=== PATIENT | female | born 1965 | race Caucasian/White ===

== ENCOUNTER 2016-06-29 15:13 | Outpatient (CLI) | payer MEDICARE ==
[2016-06-29 15:29] LABS: EOSINOPHILS % 0.4 % (0.0-6.8); LYMPHOCYTES # 1.6 # k/uL (0.6-4.0); MEAN CORPUSCULAR HEMOGLOBIN 33.2 pg (28.0-34.0); MONOCYTES # 0.4 # k/uL (0.0-0.9); MONOCYTES % 7.7 % (0.0-11.0); NEUTROPHILS # 3.3 # k/uL (1.4-7.7)
== END 2016-06-29 15:14 ==
LOC: LAB 15:13
PROVIDERS: ATTEND Psychiatry & Neurology Psychiatry
DX: Z79.899 Other long term (current) drug therapy (principal)
CPT/HCPCS: 36415; 85025

== ENCOUNTER 2016-07-13 12:50 | Outpatient (CLI) | payer MEDICARE ==
[2016-07-13 13:11] LABS: BASOPHILS % 0.7 (0.0-1.5); LYMPHOCYTES # 1.5 # k/uL (0.6-4.0); MEAN CORPUSCULAR HEMOGLOBIN 31.9 pg (28.0-34.0); MONOCYTES # 0.3 # k/uL (0.0-0.9); MONOCYTES % 5.3 % (0.0-11.0); NEUTROPHILS # 3.8 # k/uL (1.4-7.7)
== END 2016-07-13 12:52 ==
LOC: LAB 12:50
PROVIDERS: ATTEND Psychiatry & Neurology Psychiatry
DX: Z79.899 Other long term (current) drug therapy (principal)
CPT/HCPCS: 36415; 85025

== ENCOUNTER 2016-07-20 14:51 | Outpatient (CLI) | payer MEDICARE ==
[2016-07-20 15:05] LABS: BASOPHILS % 0.7 (0.0-1.5); EOSINOPHILS % 1.3 % (0.0-6.8); LYMPHOCYTES # 1.5 # k/uL (0.6-4.0); MEAN CORPUSCULAR HEMOGLOBIN 32.5 pg (28.0-34.0); MONOCYTES # 0.2 # k/uL (0.0-0.9); MONOCYTES % 3.9 % (0.0-11.0)
== END 2016-07-20 14:52 ==
LOC: LAB 14:51
PROVIDERS: ATTEND Psychiatry & Neurology Psychiatry
DX: Z79.899 Other long term (current) drug therapy (principal)
CPT/HCPCS: 36415; 85025

== ENCOUNTER 2016-07-31 15:05 | Outpatient (CLI) | payer MEDICARE, OTHER ==
[2016-07-31 15:24] LABS: BASOPHILS % 0.7 (0.0-1.5); EOSINOPHILS % 0.9 % (0.0-6.8); LYMPHOCYTES # 1.9 # k/uL (0.6-4.0); MONOCYTES # 0.3 # k/uL (0.0-0.9); MONOCYTES % 4.6 % (0.0-11.0)
== END 2016-07-31 15:06 ==
LOC: LAB 15:05
PROVIDERS: ATTEND Psychiatry & Neurology Psychiatry
DX: Z51.81 Encounter for therapeutic drug level monitoring (principal); Z79.899 Other long term (current) drug therapy
CPT/HCPCS: 36415; 85025

== ENCOUNTER 2016-08-07 15:16 | Outpatient (CLI) | payer MEDICARE, OTHER ==
[2016-08-07 15:39] LABS: BASOPHILS % 0.9 (0.0-1.5); EOSINOPHILS % 2.2 % (0.0-6.8); LYMPHOCYTES # 1.4 # k/uL (0.6-4.0); MEAN CORPUSCULAR HEMOGLOBIN 32.5 pg (28.0-34.0); MONOCYTES # 0.3 # k/uL (0.0-0.9); MONOCYTES % 4.6 % (0.0-11.0); NEUTROPHILS # 4.4 # k/uL (1.4-7.7)
== END 2016-08-07 15:17 ==
LOC: LAB 15:16
PROVIDERS: ATTEND Psychiatry & Neurology Psychiatry
DX: Z51.81 Encounter for therapeutic drug level monitoring (principal); Z79.899 Other long term (current) drug therapy
CPT/HCPCS: 36415; 85025

== ENCOUNTER 2016-08-14 14:16 | Outpatient (CLI) | payer MEDICARE, OTHER ==
[2016-08-14 14:58] LABS: BASOPHILS % 0.7 (0.0-1.5); EOSINOPHILS % 1.2 % (0.0-6.8); LYMPHOCYTES # 1.4 # k/uL (0.6-4.0); MEAN CORPUSCULAR HEMOGLOBIN 32.9 pg (28.0-34.0); MONOCYTES # 0.3 # k/uL (0.0-0.9); MONOCYTES % 4.2 % (0.0-11.0); NEUTROPHILS # 6.1 # k/uL (1.4-7.7)
== END 2016-08-14 14:17 ==
LOC: LAB 14:16
PROVIDERS: ATTEND Psychiatry & Neurology Psychiatry
DX: Z51.81 Encounter for therapeutic drug level monitoring (principal); Z79.899 Other long term (current) drug therapy
CPT/HCPCS: 36415; 85025

== ENCOUNTER 2016-08-21 12:47 | Outpatient (CLI) | payer MEDICARE, OTHER ==
[2016-08-21 13:01] LABS: BASOPHILS % 0.6 (0.0-1.5); EOSINOPHILS % 0.7 % (0.0-6.8); MEAN CORPUSCULAR HEMOGLOBIN 32.3 pg (28.0-34.0); MONOCYTES % 3.7 % (0.0-11.0); NEUTROPHILS # 6.8 # k/uL (1.4-7.7)
== END 2016-08-21 12:50 ==
LOC: LAB 12:47
PROVIDERS: ATTEND Psychiatry & Neurology Psychiatry
DX: Z51.81 Encounter for therapeutic drug level monitoring (principal); Z79.899 Other long term (current) drug therapy
CPT/HCPCS: 36415; 85025

== ENCOUNTER 2016-08-28 15:35 | Outpatient (CLI) | payer MEDICARE, OTHER ==
[2016-08-28 15:58] LABS: BASOPHILS % 0.7 (0.0-1.5); EOSINOPHILS % 2.1 % (0.0-6.8); MEAN CORPUSCULAR VOLUME 94.6 fl (80.0-100.0); MONOCYTES % 4.3 % (0.0-11.0); NEUTROPHILS # 4.8 # k/uL (1.4-7.7)
== END 2016-08-28 15:36 ==
LOC: LAB 15:35
PROVIDERS: ATTEND Psychiatry & Neurology Psychiatry
DX: Z51.81 Encounter for therapeutic drug level monitoring (principal); Z79.899 Other long term (current) drug therapy
CPT/HCPCS: 36415; 85025

== ENCOUNTER 2016-09-04 15:48 | Outpatient (CLI) | payer MEDICARE, OTHER ==
[2016-09-04 16:01] LABS: BASOPHILS % 0.8 (0.0-1.5); EOSINOPHILS % 2.3 % (0.0-6.8); MEAN CORPUSCULAR HEMOGLOBIN 32.8 pg (28.0-34.0); MEAN CORPUSCULAR VOLUME 94.9 fl (80.0-100.0); MONOCYTES % 4.7 % (0.0-11.0)
== END 2016-09-04 15:50 ==
LOC: LAB 15:48
PROVIDERS: ATTEND Psychiatry & Neurology Psychiatry
DX: Z51.81 Encounter for therapeutic drug level monitoring (principal); Z79.899 Other long term (current) drug therapy
CPT/HCPCS: 36415; 85025

== ENCOUNTER 2016-09-11 14:52 | Outpatient (CLI) | payer MEDICARE, OTHER ==
[2016-09-11 15:11] LABS: BASOPHILS % 0.9 (0.0-1.5); EOSINOPHILS % 1.6 % (0.0-6.8); MEAN CORPUSCULAR HEMOGLOBIN 32.2 pg (28.0-34.0); MEAN CORPUSCULAR VOLUME 94.3 fl (80.0-100.0); MONOCYTES % 4.1 % (0.0-11.0); NEUTROPHILS # 8.7 # k/uL (1.4-7.7)
== END 2016-09-11 14:53 ==
LOC: LAB 14:52
PROVIDERS: ATTEND Psychiatry & Neurology Psychiatry
DX: Z51.81 Encounter for therapeutic drug level monitoring (principal); Z79.899 Other long term (current) drug therapy
CPT/HCPCS: 36415; 85025

== ENCOUNTER 2016-09-18 15:12 | Outpatient (CLI) | payer MEDICARE, OTHER ==
[2016-09-18 15:32] LABS: BASOPHILS % 0.8 (0.0-1.5); EOSINOPHILS % 1.2 % (0.0-6.8); MEAN CORPUSCULAR HEMOGLOBIN 32.9 pg (28.0-34.0); MEAN CORPUSCULAR VOLUME 96.2 fl (80.0-100.0); MONOCYTES % 3.2 % (0.0-11.0); NEUTROPHILS # 10.5 # k/uL (1.4-7.7)
== END 2016-09-18 15:13 ==
LOC: LAB 15:12
PROVIDERS: ATTEND Psychiatry & Neurology Psychiatry
DX: Z51.81 Encounter for therapeutic drug level monitoring (principal); Z79.899 Other long term (current) drug therapy
CPT/HCPCS: 36415; 85025

== ENCOUNTER 2016-09-25 15:10 | Outpatient (CLI) | payer MEDICARE, OTHER ==
[2016-09-25 15:22] LABS: BASOPHILS % 0.9 (0.0-1.5); EOSINOPHILS % 1.4 % (0.0-6.8); MEAN CORPUSCULAR HEMOGLOBIN 31.9 pg (28.0-34.0); MEAN CORPUSCULAR VOLUME 95.9 fl (80.0-100.0); MONOCYTES % 3.8 % (0.0-11.0); NEUTROPHILS # 6.2 # k/uL (1.4-7.7)
== END 2016-09-25 15:11 ==
LOC: LAB 15:10
PROVIDERS: ATTEND Psychiatry & Neurology Psychiatry
DX: Z51.81 Encounter for therapeutic drug level monitoring (principal); Z79.899 Other long term (current) drug therapy
CPT/HCPCS: 36415; 85025

== ENCOUNTER 2016-09-27 16:38 | Outpatient (CLI) | payer MEDICARE, OTHER | END 2016-09-27 16:40 | LOC: LAB 16:38 | PROVIDERS: ATTEND Physician Assistant | DX: R30.0 Dysuria (principal) | CPT/HCPCS: 87086 ==

== ENCOUNTER 2016-10-03 12:51 | Outpatient (CLI) | payer MEDICARE, OTHER ==
[2016-10-03 13:09] LABS: BASOPHILS % 0.6 (0.0-1.5); EOSINOPHILS % 1.2 % (0.0-6.8); MEAN CORPUSCULAR HEMOGLOBIN 32.5 pg (28.0-34.0); MEAN CORPUSCULAR VOLUME 95.8 fl (80.0-100.0); MONOCYTES % 2.7 % (0.0-11.0); NEUTROPHILS # 8.5 # k/uL (1.4-7.7)
== END 2016-10-03 12:52 ==
LOC: LAB 12:51
PROVIDERS: ATTEND Psychiatry & Neurology Psychiatry
DX: Z79.899 Other long term (current) drug therapy (principal)
CPT/HCPCS: 36415; 85025

== ENCOUNTER 2016-10-09 12:01 | Outpatient (CLI) | payer MEDICARE, OTHER ==
[2016-10-09 12:18] LABS: BASOPHILS % 0.8 (0.0-1.5); MEAN CORPUSCULAR HEMOGLOBIN 32.1 pg (28.0-34.0); MEAN CORPUSCULAR VOLUME 96.6 fl (80.0-100.0); MONOCYTES % 4.1 % (0.0-11.0)
== END 2016-10-09 12:02 ==
LOC: LAB 12:01
PROVIDERS: ATTEND Psychiatry & Neurology Psychiatry
DX: Z79.899 Other long term (current) drug therapy (principal)
CPT/HCPCS: 36415; 85025

== ENCOUNTER 2016-10-16 14:29 | Outpatient (CLI) | payer MEDICARE, OTHER ==
[2016-10-16 14:45] LABS: BASOPHILS % 0.6 (0.0-1.5); EOSINOPHILS % 0.8 % (0.0-6.8); MEAN CORPUSCULAR HEMOGLOBIN 32.8 pg (28.0-34.0); MONOCYTES % 3.2 % (0.0-11.0); NEUTROPHILS # 10.4 # k/uL (1.4-7.7)
== END 2016-10-16 14:30 ==
LOC: LAB 14:29
PROVIDERS: ATTEND Psychiatry & Neurology Psychiatry
DX: Z79.899 Other long term (current) drug therapy (principal)
CPT/HCPCS: 36415; 85025

== ENCOUNTER 2016-10-23 15:20 | Outpatient (CLI) | payer MEDICARE, OTHER ==
[2016-10-23 15:35] LABS: BASOPHILS % 1.2 (0.0-1.5); MEAN CORPUSCULAR HEMOGLOBIN 32.1 pg (28.0-34.0); MEAN CORPUSCULAR VOLUME 95.8 fl (80.0-100.0); MONOCYTES % 5.2 % (0.0-11.0); NEUTROPHILS # 5.6 # k/uL (1.4-7.7)
== END 2016-10-23 15:21 ==
LOC: LAB 15:20
PROVIDERS: ATTEND Psychiatry & Neurology Psychiatry
DX: Z79.899 Other long term (current) drug therapy (principal)
CPT/HCPCS: 36415; 85025

== ENCOUNTER 2016-10-30 14:04 | Outpatient (CLI) | payer MEDICARE, OTHER ==
[2016-10-30 14:21] LABS: BASOPHILS % 0.9 (0.0-1.5); EOSINOPHILS % 2.2 % (0.0-6.8); MEAN CORPUSCULAR VOLUME 95.4 fl (80.0-100.0); MONOCYTES % 4.1 % (0.0-11.0); NEUTROPHILS # 6.1 # k/uL (1.4-7.7)
== END 2016-10-30 14:05 ==
LOC: LAB 14:04
PROVIDERS: ATTEND Psychiatry & Neurology Psychiatry
DX: Z79.899 Other long term (current) drug therapy (principal)
CPT/HCPCS: 36415; 85025

== ENCOUNTER 2016-11-06 13:31 | Outpatient (CLI) | payer MEDICARE, OTHER ==
[2016-11-06 13:58] LABS: BASOPHILS % 0.8 (0.0-1.5); EOSINOPHILS % 0.6 % (0.0-6.8); MEAN CORPUSCULAR HEMOGLOBIN 32.2 pg (28.0-34.0); MEAN CORPUSCULAR VOLUME 93.3 fl (80.0-100.0); MONOCYTES % 4.4 % (0.0-11.0); NEUTROPHILS # 7.5 # k/uL (1.4-7.7)
== END 2016-11-06 13:36 | disposition home or self-care (01) ==
LOC: LAB 13:31
PROVIDERS: ATTEND Psychiatry & Neurology Psychiatry
DX: Z79.899 Other long term (current) drug therapy (principal)
CPT/HCPCS: 36415; 85025

== ENCOUNTER 2016-11-13 09:39 | Outpatient (CLI) | payer MEDICARE, OTHER ==
[2016-11-13 10:10] LABS: BASOPHILS % 1.1 (0.0-1.5); EOSINOPHILS % 2.3 % (0.0-6.8); MEAN CORPUSCULAR HEMOGLOBIN 32.6 pg (28.0-34.0); MONOCYTES % 6.2 % (0.0-11.0); NEUTROPHILS # 5.2 # k/uL (1.4-7.7)
== END 2016-11-13 09:40 ==
LOC: LAB 09:39
PROVIDERS: ATTEND Psychiatry & Neurology Psychiatry
DX: Z79.899 Other long term (current) drug therapy (principal); Z51.81 Encounter for therapeutic drug level monitoring
CPT/HCPCS: 36415; 85025

== ENCOUNTER 2016-11-21 11:10 | Outpatient (CLI) | payer MEDICARE, OTHER ==
[2016-11-21 11:44] LABS: BASOPHILS % 0.7 (0.0-1.5); EOSINOPHILS % 0.7 % (0.0-6.8); MEAN CORPUSCULAR HEMOGLOBIN 32.4 pg (28.0-34.0); MEAN CORPUSCULAR VOLUME 92.6 fl (80.0-100.0); MONOCYTES % 4.2 % (0.0-11.0); NEUTROPHILS # 8.6 # k/uL (1.4-7.7)
== END 2016-11-21 11:12 ==
LOC: LAB 11:10
PROVIDERS: ATTEND Psychiatry & Neurology Psychiatry
DX: Z79.899 Other long term (current) drug therapy (principal)
CPT/HCPCS: 85025

== ENCOUNTER 2016-11-27 10:25 | Outpatient (CLI) | payer MEDICARE, OTHER ==
[2016-11-27 10:51] LABS: BASOPHILS % 0.9 (0.0-1.5); EOSINOPHILS % 1.2 % (0.0-6.8); MEAN CORPUSCULAR HEMOGLOBIN 32.5 pg (28.0-34.0); MEAN CORPUSCULAR VOLUME 93.8 fl (80.0-100.0); MONOCYTES % 4.2 % (0.0-11.0)
== END 2016-11-27 10:26 ==
LOC: LAB 10:25
PROVIDERS: ATTEND Psychiatry & Neurology Psychiatry
DX: Z79.899 Other long term (current) drug therapy (principal)
CPT/HCPCS: 36415; 85025

== ENCOUNTER 2016-12-04 08:41 | Outpatient (CLI) | payer MEDICARE, OTHER ==
[2016-12-04 09:02] LABS: BASOPHILS % 0.7 (0.0-1.5); EOSINOPHILS % 2.4 % (0.0-6.8); MEAN CORPUSCULAR HEMOGLOBIN 32.1 pg (28.0-34.0); MEAN CORPUSCULAR VOLUME 92.4 fl (80.0-100.0); MONOCYTES % 2.6 % (0.0-11.0); NEUTROPHILS # 5.8 # k/uL (1.4-7.7)
== END 2016-12-04 08:42 ==
LOC: LAB 08:41
PROVIDERS: ATTEND Psychiatry & Neurology Psychiatry
DX: Z79.899 Other long term (current) drug therapy (principal)
CPT/HCPCS: 36415; 85025

== ENCOUNTER 2016-12-11 10:06 | Outpatient (CLI) | payer MEDICARE, OTHER ==
[2016-12-11 10:22] LABS: BASOPHILS % 0.9 (0.0-1.5); EOSINOPHILS % 1.2 % (0.0-6.8); MEAN CORPUSCULAR HEMOGLOBIN 32.1 pg (28.0-34.0); MEAN CORPUSCULAR VOLUME 93.5 fl (80.0-100.0); MONOCYTES % 3.9 % (0.0-11.0)
== END 2016-12-11 10:07 ==
LOC: LAB 10:06
PROVIDERS: ATTEND Psychiatry & Neurology Psychiatry
DX: Z79.899 Other long term (current) drug therapy (principal)
CPT/HCPCS: 36415; 85025

== ENCOUNTER 2016-12-18 14:46 | Outpatient (CLI) | payer MEDICARE, OTHER ==
[2016-12-18 15:06] LABS: BASOPHILS % 0.7 (0.0-1.5); EOSINOPHILS % 1.2 % (0.0-6.8); MEAN CORPUSCULAR HEMOGLOBIN 31.5 pg (28.0-34.0); MEAN CORPUSCULAR VOLUME 91.9 fl (80.0-100.0); MONOCYTES % 3.6 % (0.0-11.0); NEUTROPHILS # 8.7 # k/uL (1.4-7.7)
== END 2016-12-18 14:47 ==
LOC: LAB 14:46
PROVIDERS: ATTEND Psychiatry & Neurology Psychiatry
DX: Z79.899 Other long term (current) drug therapy (principal)
CPT/HCPCS: 36415; 85025

== ENCOUNTER 2016-12-25 08:00 | Emergency (ER) | payer MEDICARE ==
--- NOTE | 2016-12-25 08:12 | ED Physician Documentation ---
Foot Injury - HISTORIAN Historian: patient, other (caregiver from detention) - HPI Chief Complaint: Foot Injury Additional Information: Patient tripped and fell yesterday from a standing position injuring the right foot Onset: other (occurred yesterday) Where: home Severity: mild Context: fall, twist, wearing shoes Associated Symptoms:: swelling, other (has been walking on it without difficulty ) Further Comments: no - ROS CONST: no problems. denies: recent illness, fever, chills CVS/RESP: none. denies: chest pain, shortness of breath NEURO: denies: headache, head injury, dizziness GI/: denies: problems urinating, nausea, vomiting MS/SKIN/LYMPH: foot swelling. denies: neck pain, ankle swelling Comment: unknown - PAST HX Past History: other (caregiver did) Immunizations: UTD Allergies/Adverse Reactions: Allergies Allergy/AdvReac Type Severity Reaction Status Date / Time No Known Allergies Allergy Verified 12/25/16 08:18 Home Medications: Ambulatory Orders Medication Instructions Recorded Acetaminophen [Tylenol] 650 mg PO Q6 PRN 09/27/16 Citalopram Hydrobromide [Celexa] 40 mg PO DAILY 09/27/16 Clozapine [Clozaril] 100 mg PO HS 09/27/16 Divalproex Sodium [Depakote Er] 500 mg PO DAILY 09/27/16 Fenofibrate [Tricor] 160 mg PO DAILY u2 09/27/16 Fluticasone Propionate [Flonase 9.9 ml NS DAILY 09/27/16 Allergy Relief] Furosemide [Lasix] 40 mg PO DAILY 09/27/16 Ibuprofen 600 mg PO DAILY 09/27/16 Levothyroxine Sodium [Synthroid] 100 mcg PO DAILY 09/27/16 Lorazepam [Ativan] 1 mg PO TID 09/27/16 Magnesium Hydroxide [Milk Of 400 mg PO DAILY PRN 09/27/16 Magnesia] Niacinamide [Niacin] 500 mg PO HS 09/27/16 Norgestimate-Ethinyl Estradiol 1 each PO DAILY 09/27/16 [Previfem Tablet] Olanzapine [Zyprexa] 5 mg PO Q4 PRN 09/27/16 [place]-3 Fatty Acids [Fish Oil] 1,000 mg PO TID 09/27/16 Ondansetron HCl Rapdis [Zofran Odt] 8 mg PO Q8 PRN u2 09/27/16 Ranitidine HCl [Zantac] 300 mg PO HS u2 09/27/16 Trazodone HCl 250 mg PO HS u2 09/27/16 Triamterene/Hydrochlorothiazid 2 each PO DAILY av 09/27/16 [Dyazide 37.5-25 Capsule] - SOCIAL HX Smoking History: non-smoker Alcohol Use: none Drug Use: none - FAMILY HX Family History: no significant history - REVIEWED ASSESSMENTS Nursing Assessment Reviewed: Yes Vitals Reviewed: Yes Progress - Progress Progress: Ice packs applied to right foot - EKG/XRAY/CT XRAY: ankle (and foot) - Additional EKG/XRAY/Consults XRAY #2: foot ED Results Lab/Radiology - Radiology Radiology Impressions: 3 views of the right ankle Clinical history: Right ankle pain Findings: There has been prior plate and screw fixation of distal fibula. The 3rd from the bottom screw is dislodged. No acute fracture is identified of the ankle joint. There is severe ankle joint osteoarthritis. Impression: Severe osteoarthritis of the ankle joint with plate and screw fixation of the distal fibula. 3 views of the right foot Clinical history: Right ankle pain and swelling Findings: There are fractures of the base of the 3rd and 4th metatarsals. There is also fractures of the distal 2nd, 3rd, 4th and 5th metatarsals. The base of the 3rd and 4th metatarsal fractures or acute. No other fractures identified. + Impression: 1. Acute fractures of the base of the 3rd and 4th metatarsals with additional fractures of the distal 2nd 3rd 4th and 5th metatarsals. Foot Injury Physical Exam - Physical Exam General Appearance: no acute distress, alert Foot: right foot: ecchymosis (over the dorsum of the foot), pain, soft tissue tenderness (tenderness of palpation to the mid tatarsal area), swelling Ankle: right: non-tender, normal inspection, limited range of motion (surgery 3 years ago) Gait: normal (with some discomfort). No: unable to bear weight Neuro: sensation nml, motor nml Vascular: no vascular compromise Tendons: flexor Leg/Knee/Thigh: uninjured above ankle Skin: intact, warm Head/ENT: nml inspection Neck/Back: nml inspection, non-tender Resp/CVS: chest non-tender, breath sounds nml, heart sounds nml, no resp. distress, lungs clear Abdomen: non-tender Discharge Clincal Impression: Foot fracture, right, Right foot sprain Referrals: CLARIBEL ARREOLA DO [Primary Care Provider] - 01/22/17 (Follow up with me in 4 weeks) Additional Instructions: 09:35 Follow up with me in the clinic in 4 weeks- outpatient order for foot xray to be repeated before appointment- wear walking boot until that time- ICE Home Medications: Ambulatory Orders Acetaminophen [Tylenol] 650 mg PO Q6 PRN u2 09/27/16 Citalopram Hydrobromide [Celexa] 40 mg PO DAILY u2 09/27/16 Clozapine [Clozaril] 100 mg PO HS u2 09/27/16 Divalproex Sodium [Depakote Er] 500 mg PO DAILY u2 09/27/16 Fenofibrate [Tricor] 160 mg PO DAILY u2 09/27/16 Fluticasone Propionate [Flonase Allergy Relief] 9.9 ml NS DAILY 09/27/16 Furosemide [Lasix] 40 mg PO DAILY u2 09/27/16 Ibuprofen 600 mg PO DAILY u2 09/27/16 Levothyroxine Sodium [Synthroid] 100 mcg PO DAILY u2 09/27/16 Lorazepam [Ativan] 1 mg PO TID u2 09/27/16 Magnesium Hydroxide [Milk Of Magnesia] 400 mg PO DAILY PRN 09/27/16 Niacinamide [Niacin] 500 mg PO HS u2 09/27/16 Norgestimate-Ethinyl Estradiol [Previfem Tablet] 1 each PO DAILY u2 09/27/16 Olanzapine [Zyprexa] 5 mg PO Q4 PRN u2 09/27/16 [place]-3 Fatty Acids [Fish Oil] 1,000 mg PO TID av 09/27/16 Ondansetron HCl Rapdis [Zofran Odt] 8 mg PO Q8 PRN u2 09/27/16 Ranitidine HCl [Zantac] 300 mg PO HS u2 09/27/16 Trazodone HCl 250 mg PO [facility] 09/27/16 Triamterene/Hydrochlorothiazid [Dyazide 37.5-25 Capsule] 2 each PO DAILY av 04/05 Comments: Rest, ICE, elevate Wear walking boot Follow up with me in the clinic in 4 weeks Get repeat foot X-ray prior to appointment- outpatient order submitted Condition: Good Disposition: 01 HOME, SELF-CARE Decision to Admit: NO Date of Decison to Admit: 12/25/16 Decision Time: 09:46 (n)
[2016-12-25 09:55] VITALS: BP 108/60
--- NOTE | 2016-12-25 15:20 | Diagnostic Imaging Report ---
[facility] [address] [facility] [address] [address] Report Submission Date: Dec 25, 2016 9:54:52 AM CDT Patient Study Name: ANA WEINER Date: Dec 25, 2016 8:25:59 AM CDT Modality Type: CR Gender: F Description: LOWER EXTREMITY : 61 Institution: [facility] Physician ELA PIÑA - ER 3 views of the right ankle Clinical history: Right ankle pain Findings: There has been prior plate and screw fixation of distal fibula. The 3rd from the bottom screw is dislodged. No acute fracture is identified of the ankle joint. There is severe ankle joint osteoarthritis. Impression: Severe osteoarthritis of the ankle joint with plate and screw fixation of the distal fibula. Electronically signed on Dec 25, 2016 9:54:52 AM CDT by: Nicolas POWERS
--- NOTE | 2016-12-25 15:21 | Diagnostic Imaging Report ---
ELA PIÑA [facility] [address] [facility].[address] [address] Report Submission Date: Dec 25, 2016 9:53:13 AM CDT Patient Study Name: ANA WEINER Date: Dec 25, 2016 8:29:53 AM CDT Modality Type: CR Gender: F Description: LOWER EXTREMITY : 61 Institution: [facility] Physician: ELA PIÑA 3 views of the right ankle Clinical history: Right ankle pain and swelling Findings: There are fractures of the base of the 3rd and 4th metatarsals. There is also fractures of the distal 2nd, 3rd, 4th and 5th metatarsals. The base of the 3rd and 4th metatarsal fractures or acute. No other fractures identified. + Impression: 1. Acute fractures of the base of the 3rd and 4th metatarsals with additional fractures of the distal 2nd 3rd 4th and 5th metatarsals. Electronically signed on Dec 25, 2016 9:53:13 AM CDT by: Nicolas POWERS
== END 2016-12-25 09:52 | disposition home or self-care (01) ==
LOC: ED 08:00
DX: S92.331A Displaced fracture of third metatarsal bone, right foot, initial encounter for closed fracture (principal); S92.341A Displaced fracture of fourth metatarsal bone, right foot, initial encounter for closed fracture; S92.321A Displaced fracture of second metatarsal bone, right foot, initial encounter for closed fracture; S92.351A Displaced fracture of fifth metatarsal bone, right foot, initial encounter for closed fracture; S93.601A Unspecified sprain of right foot, initial encounter; W19.XXXA Unspecified fall, initial encounter; Y93.9 Activity, unspecified; Y99.9 Unspecified external cause status
CPT/HCPCS: 73610; 73630; 99283; L4360

== ENCOUNTER 2016-12-26 10:17 | Outpatient (CLI) | payer MEDICARE, OTHER ==
[2016-12-25 09:55] VITALS: BP 108/60
[2016-12-26 11:03] LABS: BASOPHILS % 0.7 (0.0-1.5); EOSINOPHILS % 0.8 % (0.0-6.8); MEAN CORPUSCULAR HEMOGLOBIN 31.4 pg (28.0-34.0); MEAN CORPUSCULAR VOLUME 91.7 fl (80.0-100.0); MONOCYTES % 3.6 % (0.0-11.0)
== END 2016-12-26 10:18 ==
LOC: LAB 10:17
PROVIDERS: ATTEND Psychiatry & Neurology Psychiatry
DX: Z79.899 Other long term (current) drug therapy (principal)
CPT/HCPCS: 36415; 85025

== ENCOUNTER 2017-01-01 10:25 | Outpatient (CLI) | payer MEDICARE, OTHER ==
[2017-01-01 10:44] LABS: BASOPHILS % 0.9 (0.0-1.5); EOSINOPHILS % 1.5 % (0.0-6.8); MEAN CORPUSCULAR HEMOGLOBIN 31.6 pg (28.0-34.0); MEAN CORPUSCULAR VOLUME 91.4 fl (80.0-100.0); MONOCYTES % 2.8 % (0.0-11.0); NEUTROPHILS # 9.6 # k/uL (1.4-7.7)
== END 2017-01-01 14:08 ==
LOC: LAB 10:25
PROVIDERS: ATTEND Psychiatry & Neurology Psychiatry
DX: Z79.899 Other long term (current) drug therapy (principal)
CPT/HCPCS: 36415; 85025

== ENCOUNTER 2017-01-15 11:31 | Outpatient (CLI) | payer MEDICARE, OTHER ==
[2017-01-15 11:47] LABS: BASOPHILS % 0.8 (0.0-1.5); EOSINOPHILS % 0.8 % (0.0-6.8); MEAN CORPUSCULAR HEMOGLOBIN 30.6 pg (28.0-34.0); MEAN CORPUSCULAR VOLUME 90.1 fl (80.0-100.0); MONOCYTES % 4.1 % (0.0-11.0); NEUTROPHILS # 10.5 # k/uL (1.4-7.7)
== END 2017-01-15 11:32 ==
LOC: LAB 11:31
PROVIDERS: ATTEND Psychiatry & Neurology Psychiatry
DX: Z79.899 Other long term (current) drug therapy (principal)
CPT/HCPCS: 36415; 85025

== ENCOUNTER 2017-01-22 13:28 | Outpatient (CLI) | payer MEDICARE, OTHER ==
--- NOTE | 2017-01-23 07:00 | Diagnostic Imaging Report ---
ELA PIÑA [facility] [address] [facility] [address] [address] Report Submission Date: Jan 22, 2017 8:02:38 PM CDT Patient Study Name: ANA WEINER Date: Jan 22, 2017 1:48:51 PM CDT Modality Type: CR Gender: F Description: LOWER EXTREMITY : 61 Institution: [facility] Physician: ELA PIÑA Right foot, 3 views. History: Fracture followup. Findings: Comparison is made to exam dated 12/25/2016. The fracture through the 2nd, 3rd, 4th, and 5th metacarpal necks is again identified with persistent mild displacement which is unchanged. The fractures through the base of the 3rd and 4th metatarsals is also unchanged in appearance with mild callus now seen at the base of the 3rd metatarsal fracture. There is degenerative at the 1st metatarsophalangeal joint. Impression: 1. No significant change in appearance of the fracture through the neck of the 2nd through 5th metatarsals. 2. Fracture through the base of the 3rd and 4th metatarsal with minimal callus now present Electronically signed on Jan 22, 2017 8:02:38 PM CDT by: Mick Thrasher [facility]ITALDale
== END 2017-01-22 13:30 ==
LOC: RAD 13:28
PROVIDERS: ATTEND Family Medicine
DX: S92.333D Displaced fracture of third metatarsal bone, unspecified foot, subsequent encounter for fracture with routine healing (principal); X58.XXXA Exposure to other specified factors, initial encounter; Y93.9 Activity, unspecified; Y99.9 Unspecified external cause status
CPT/HCPCS: 73630

== ENCOUNTER 2017-01-30 11:21 | Outpatient (CLI) | payer MEDICARE, OTHER ==
[2017-01-30 11:33] LABS: BASOPHILS % 0.8 (0.0-1.5); EOSINOPHILS % 1.7 % (0.0-6.8); MEAN CORPUSCULAR HEMOGLOBIN 31.9 pg (28.0-34.0); MEAN CORPUSCULAR VOLUME 91.4 fl (80.0-100.0); MONOCYTES % 3.5 % (0.0-11.0); NEUTROPHILS # 10.3 # k/uL (1.4-7.7)
== END 2017-01-30 11:22 ==
LOC: LAB 11:21
PROVIDERS: ATTEND Psychiatry & Neurology Psychiatry
DX: Z79.899 Other long term (current) drug therapy (principal)
CPT/HCPCS: 36415; 85025

== ENCOUNTER 2017-02-12 10:30 | Outpatient (CLI) | payer MEDICARE, OTHER ==
[2017-02-12 10:41] LABS: BASOPHILS % 1.2 (0.0-1.5); EOSINOPHILS % 2.4 % (0.0-6.8); MEAN CORPUSCULAR HEMOGLOBIN 30.8 pg (28.0-34.0); MEAN CORPUSCULAR VOLUME 91.1 fl (80.0-100.0); MONOCYTES % 4.8 % (0.0-11.0); NEUTROPHILS # 8.2 # k/uL (1.4-7.7)
== END 2017-02-12 10:32 ==
LOC: LAB 10:30
PROVIDERS: ATTEND Psychiatry & Neurology Psychiatry
DX: Z79.899 Other long term (current) drug therapy (principal)
CPT/HCPCS: 36415; 85025

== ENCOUNTER 2017-02-26 13:50 | Outpatient (CLI) | payer MEDICARE, OTHER ==
[2017-02-26 14:01] LABS: BASOPHILS % 0.8 (0.0-1.5); EOSINOPHILS % 1.3 % (0.0-6.8); MEAN CORPUSCULAR HEMOGLOBIN 31.3 pg (28.0-34.0); MEAN CORPUSCULAR VOLUME 90.5 fl (80.0-100.0); MONOCYTES % 3.6 % (0.0-11.0); NEUTROPHILS # 10.8 # k/uL (1.4-7.7)
== END 2017-02-26 13:52 ==
LOC: LAB 13:50
PROVIDERS: ATTEND Psychiatry & Neurology Psychiatry
DX: Z79.899 Other long term (current) drug therapy (principal)
CPT/HCPCS: 36415; 85025

== ENCOUNTER 2017-03-06 12:49 | Outpatient (CLI) | payer MEDICARE, OTHER ==
[2017-03-06 13:25] LABS: BASOPHILS % 1.1 (0.0-1.5); EOSINOPHILS % 1.6 % (0.0-6.8); MEAN CORPUSCULAR HEMOGLOBIN 30.7 pg (28.0-34.0); MEAN CORPUSCULAR VOLUME 91.8 fl (80.0-100.0); MONOCYTES % 4.1 % (0.0-11.0); NEUTROPHILS # 9.3 # k/uL (1.4-7.7)
--- NOTE | 2017-03-06 14:46 | Diagnostic Imaging Report ---
ELA PIÑA [facility] [address] [facility].[address] [address] Report Submission Date: Mar 06, 2017 2:23:08 PM CDT Patient Study Name: ANA WEINER Date: Mar 06, 2017 1:07:02 PM CDT Modality Type: CR Gender: F Description: LOWER EXTREMITY : 61 Institution: [facility] Physician: ELA PIÑA Examination: Plain film foot History: Reevaluate fractures Comparison exam 22 January 2017 Findings: 3 views of the foot demonstrates osteopenia. Fracture deformities involving the distal margins of the 2nd through 5th metatarsals. Fracture deformities involving the base of the 3rd and 4th metatarsals. Limited crossing trabecula/callus identified. Midfoot degenerative changes. Fixation hardware involving the fibula. Generalized soft tissue fullness around the ankle. Impression: Minimal healing of fractures involving the 2nd through 5th metatarsals and described. Osteopenia and degenerative changes. Electronically signed on Mar 06, 2017 2:23:08 PM CDT by: Izaiah POWERS
== END 2017-03-06 12:50 ==
LOC: LAB 12:49
PROVIDERS: ATTEND Psychiatry & Neurology Psychiatry
DX: Z79.899 Other long term (current) drug therapy (principal)
CPT/HCPCS: 36415; 73630; 85025

== ENCOUNTER 2017-03-12 14:26 | Outpatient (CLI) | payer MEDICARE, OTHER ==
[2017-03-12 14:42] LABS: BASOPHILS % 1.1 (0.0-1.5); EOSINOPHILS % 1.9 % (0.0-6.8); MEAN CORPUSCULAR HEMOGLOBIN 31.2 pg (28.0-34.0); MEAN CORPUSCULAR VOLUME 91.9 fl (80.0-100.0)
== END 2017-03-12 14:30 ==
LOC: LAB 14:26
PROVIDERS: ATTEND Psychiatry & Neurology Psychiatry
DX: Z79.899 Other long term (current) drug therapy (principal)
CPT/HCPCS: 36415; 85025

== ENCOUNTER 2017-03-19 13:56 | Outpatient (CLI) | payer MEDICARE, OTHER ==
[2017-03-19 14:09] LABS: BASOPHILS % 0.8 (0.0-1.5); EOSINOPHILS % 0.9 % (0.0-6.8); MEAN CORPUSCULAR HEMOGLOBIN 31.9 pg (28.0-34.0); MEAN CORPUSCULAR VOLUME 91.7 fl (80.0-100.0); MONOCYTES % 3.7 % (0.0-11.0); NEUTROPHILS # 7.9 # k/uL (1.4-7.7)
== END 2017-03-19 13:57 ==
LOC: LAB 13:56
PROVIDERS: ATTEND Psychiatry & Neurology Psychiatry
DX: Z79.899 Other long term (current) drug therapy (principal)
CPT/HCPCS: 36415; 85025

== ENCOUNTER 2017-03-22 15:33 | Outpatient (CLI) | payer MEDICARE, OTHER | END 2017-03-22 15:34 | LOC: LABRHC 15:33 | PROVIDERS: ATTEND Physician Assistant | DX: R39.15 Urgency of urination (principal) | CPT/HCPCS: 87086; 87186 ==

== ENCOUNTER 2017-03-26 10:47 | Outpatient (CLI) | payer MEDICARE, OTHER ==
[2017-03-26 11:09] LABS: BASOPHILS % 0.8 (0.0-1.5); EOSINOPHILS % 1.1 % (0.0-6.8); MEAN CORPUSCULAR HEMOGLOBIN 31.9 pg (28.0-34.0); MEAN CORPUSCULAR VOLUME 91.6 fl (80.0-100.0); MONOCYTES % 3.7 % (0.0-11.0)
== END 2017-03-26 10:50 ==
LOC: LAB 10:47
PROVIDERS: ATTEND Psychiatry & Neurology Psychiatry
DX: Z79.899 Other long term (current) drug therapy (principal)
CPT/HCPCS: 36415; 85025

== ENCOUNTER 2017-04-02 10:42 | Outpatient (CLI) | payer MEDICARE, OTHER ==
[2017-04-02 11:04] LABS: BASOPHILS % 0.8 (0.0-1.5); EOSINOPHILS % 1.2 % (0.0-6.8); MEAN CORPUSCULAR HEMOGLOBIN 31.5 pg (28.0-34.0); MEAN CORPUSCULAR VOLUME 92.5 fl (80.0-100.0); MONOCYTES % 4.1 % (0.0-11.0); NEUTROPHILS # 9.1 # k/uL (1.4-7.7)
== END 2017-04-02 10:55 ==
LOC: LAB 10:42
PROVIDERS: ATTEND Psychiatry & Neurology Psychiatry
DX: Z79.899 Other long term (current) drug therapy (principal)
CPT/HCPCS: 36415; 85025

== ENCOUNTER 2017-04-09 13:29 | Outpatient (CLI) | payer MEDICARE, OTHER ==
[2017-04-09 13:47] LABS: BASOPHILS % 1.1 (0.0-1.5); EOSINOPHILS % 1.2 % (0.0-6.8); MEAN CORPUSCULAR HEMOGLOBIN 31.8 pg (28.0-34.0); MEAN CORPUSCULAR VOLUME 95.6 fl (80.0-100.0); MONOCYTES % 4.9 % (0.0-11.0)
== END 2017-04-09 13:30 ==
LOC: LAB 13:29
PROVIDERS: ATTEND Psychiatry & Neurology Psychiatry
DX: Z79.899 Other long term (current) drug therapy (principal)
CPT/HCPCS: 36415; 85025

== ENCOUNTER 2017-04-24 14:11 | Outpatient (CLI) | payer MEDICARE, OTHER ==
[2017-04-24 14:23] LABS: BASOPHILS % 0.4 (0.0-1.5); EOSINOPHILS % 0.6 % (0.0-6.8); MEAN CORPUSCULAR HEMOGLOBIN 31.5 pg (28.0-34.0); MEAN CORPUSCULAR VOLUME 93.6 fl (80.0-100.0); NEUTROPHILS # 15.1 # k/uL (1.4-7.7)
== END 2017-04-24 14:12 ==
LOC: LAB 14:11
PROVIDERS: ATTEND Psychiatry & Neurology Psychiatry
DX: Z79.899 Other long term (current) drug therapy (principal)
CPT/HCPCS: 36415; 85025

== ENCOUNTER 2017-05-07 15:31 | Outpatient (CLI) | payer MEDICARE, OTHER ==
[2017-05-07 15:46] LABS: EOSINOPHILS % 1.9 % (0.0-6.8); MEAN CORPUSCULAR HEMOGLOBIN 31.2 pg (28.0-34.0); MEAN CORPUSCULAR VOLUME 91.1 fl (80.0-100.0); MONOCYTES % 3.2 % (0.0-11.0); NEUTROPHILS # 8.9 # k/uL (1.4-7.7)
== END 2017-05-07 15:33 ==
LOC: LAB 15:31
PROVIDERS: ATTEND Psychiatry & Neurology Psychiatry
DX: Z79.899 Other long term (current) drug therapy (principal)
CPT/HCPCS: 36415; 85025

== ENCOUNTER 2017-05-28 14:03 | Outpatient (CLI) | payer MEDICARE, OTHER ==
[2017-05-28 14:22] LABS: BASOPHILS % 0.8 (0.0-1.5); MEAN CORPUSCULAR HEMOGLOBIN 32.2 pg (28.0-34.0); MONOCYTES % 4.7 % (0.0-11.0)
== END 2017-05-28 14:04 ==
LOC: LAB 14:03
PROVIDERS: ATTEND Family Medicine
DX: Z79.899 Other long term (current) drug therapy (principal)
CPT/HCPCS: 36415; 85025

== ENCOUNTER 2017-06-12 14:13 | Outpatient (CLI) | payer MEDICARE, OTHER ==
[2017-06-12 14:27] LABS: BASOPHILS % 0.9 (0.0-1.5); EOSINOPHILS % 2.1 % (0.0-6.8); MEAN CORPUSCULAR HEMOGLOBIN 31.6 pg (28.0-34.0); MEAN CORPUSCULAR VOLUME 92.7 fl (80.0-100.0); MONOCYTES % 5.2 % (0.0-11.0); NEUTROPHILS # 6.4 # k/uL (1.4-7.7)
== END 2017-06-12 14:14 ==
LOC: LAB 14:13
PROVIDERS: ATTEND Psychiatry & Neurology Psychiatry
DX: Z79.899 Other long term (current) drug therapy (principal)
CPT/HCPCS: 36415; 85025

== ENCOUNTER 2017-07-02 14:29 | Outpatient (CLI) | payer MEDICARE, OTHER ==
[2017-07-02 14:49] LABS: BASOPHILS % 1.3 (0.0-1.5); EOSINOPHILS % 1.7 % (0.0-6.8); MEAN CORPUSCULAR HEMOGLOBIN 31.2 pg (28.0-34.0); MEAN CORPUSCULAR VOLUME 94.6 fl (80.0-100.0); MONOCYTES % 4.7 % (0.0-11.0); NEUTROPHILS # 6.4 # k/uL (1.4-7.7)
== END 2017-07-02 14:30 ==
LOC: LAB 14:29
PROVIDERS: ATTEND Psychiatry & Neurology Psychiatry
DX: Z79.899 Other long term (current) drug therapy (principal)
CPT/HCPCS: 36415; 85025

== ENCOUNTER 2017-07-12 08:10 | Outpatient (CLI) | payer MEDICARE, OTHER ==
[2017-07-12 08:28] LABS: BASOPHILS % 0.7 (0.0-1.5); EOSINOPHILS % 0.3 % (0.0-6.8); MEAN CORPUSCULAR HEMOGLOBIN 31.7 pg (28.0-34.0); MEAN CORPUSCULAR VOLUME 93.6 fl (80.0-100.0); MONOCYTES % 4.1 % (0.0-11.0); NEUTROPHILS # 9.1 # k/uL (1.4-7.7)
[2017-07-12 09:04] LABS: eGFR (African) > 60; eGFR (Non-African) > 60
== END 2017-07-12 08:11 ==
LOC: LAB 08:10
PROVIDERS: ATTEND Family Medicine
DX: E78.5 Hyperlipidemia, unspecified (principal); F25.1 Schizoaffective disorder, depressive type; E03.9 Hypothyroidism, unspecified
CPT/HCPCS: 36415; 80053; 80061; 84439; 84443; 85025

== ENCOUNTER 2017-08-06 14:17 | Outpatient (CLI) | payer MEDICARE, OTHER ==
[2017-08-06 14:33] LABS: BASOPHILS % 0.9 (0.0-1.5); EOSINOPHILS % 1.9 % (0.0-6.8); MEAN CORPUSCULAR HEMOGLOBIN 31.2 pg (28.0-34.0); MEAN CORPUSCULAR VOLUME 91.8 fl (80.0-100.0); MONOCYTES % 3.3 % (0.0-11.0); NEUTROPHILS # 9.6 # k/uL (1.4-7.7)
== END 2017-08-06 14:18 ==
LOC: LAB 14:17
PROVIDERS: ATTEND Psychiatry & Neurology Psychiatry
DX: Z79.899 Other long term (current) drug therapy (principal)
CPT/HCPCS: 36415; 85025

== ENCOUNTER 2017-09-11 16:11 | Outpatient (CLI) | payer MEDICARE, OTHER ==
[2017-09-11 16:35] LABS: EOSINOPHILS % 1.5 % (0.0-6.8); MEAN CORPUSCULAR HEMOGLOBIN 31.8 pg (28.0-34.0); MEAN CORPUSCULAR VOLUME 93.9 fl (80.0-100.0); MONOCYTES % 3.8 % (0.0-11.0); NEUTROPHILS # 7.8 # k/uL (1.4-7.7)
== END 2017-09-11 16:12 ==
LOC: LAB 16:11
PROVIDERS: ATTEND Psychiatry & Neurology Psychiatry
DX: Z79.899 Other long term (current) drug therapy (principal)
CPT/HCPCS: 36415; 85025

== ENCOUNTER 2017-10-07 09:38 | Outpatient (CLI) | payer MEDICARE, OTHER ==
[2017-10-07 10:04] LABS: BASOPHILS % 0.9 (0.0-1.5); EOSINOPHILS % 1.1 % (0.0-6.8); MEAN CORPUSCULAR HEMOGLOBIN 31.1 pg (28.0-34.0); MEAN CORPUSCULAR VOLUME 93.6 fl (80.0-100.0); NEUTROPHILS # 7.6 # k/uL (1.4-7.7)
== END 2017-10-07 12:17 ==
LOC: LAB 09:38
PROVIDERS: ATTEND Psychiatry & Neurology Psychiatry
DX: Z79.899 Other long term (current) drug therapy (principal)
CPT/HCPCS: 36415; 85025

== ENCOUNTER 2017-11-06 14:09 | Outpatient (CLI) | payer MEDICARE, OTHER ==
[2017-11-06 14:28] LABS: EOSINOPHILS % 2.1 % (0.0-6.8); MEAN CORPUSCULAR HEMOGLOBIN 32.8 pg (28.0-34.0); MEAN CORPUSCULAR VOLUME 95.6 fl (80.0-100.0); MONOCYTES % 4.8 % (0.0-11.0); NEUTROPHILS # 7.4 # k/uL (1.4-7.7)
== END 2017-11-06 14:10 ==
LOC: LAB 14:09
PROVIDERS: ATTEND Psychiatry & Neurology Psychiatry
DX: Z79.899 Other long term (current) drug therapy (principal)
CPT/HCPCS: 36415; 85025

== ENCOUNTER 2018-01-31 08:49 | Outpatient (CLI) | payer MEDICARE, OTHER ==
[2018-02-03 23:20] LABS: BASO % 0.9 % (0.0-1.5); EOS % 1.6 % (0.0-6.8); LYMPH ABS # 2.54 thou/uL (0.60-4.00); MCH. 31.7 pg (28.0-34.0); MCV 92.3 fL (80.0-100.0); MONOCYTE % 4.8 % (0.0-11.0); MONOCYTE ABS # 0.53 thou/uL (0.00-0.90); PLATELET COUNT 341 thou/uL (130-400)
== END 2018-01-31 08:50 ==
LOC: LAB 08:49
PROVIDERS: ATTEND Family Medicine
DX: Z51.81 Encounter for therapeutic drug level monitoring (principal); Z79.899 Other long term (current) drug therapy
CPT/HCPCS: 36415; 80159; 85025

== ENCOUNTER 2018-03-06 08:43 | Outpatient (CLI) | payer MEDICARE, OTHER ==
[2018-03-06 09:47] LABS: BASOPHILS % 0.5 (0.0-1.5); EOSINOPHILS % 2.2 % (0.0-6.8); MEAN CORPUSCULAR HEMOGLOBIN 31.3 pg (28.0-34.0); MONOCYTES % 6.2 % (0.0-11.0); NEUTROPHILS # 5.9 # k/uL (1.4-7.7)
== END 2018-03-06 08:44 ==
LOC: LAB 08:43
PROVIDERS: ATTEND Psychiatry & Neurology Psychiatry
DX: Z51.81 Encounter for therapeutic drug level monitoring (principal); Z79.899 Other long term (current) drug therapy
CPT/HCPCS: 36415; 80159; 85025

== ENCOUNTER 2018-04-03 09:21 | Outpatient (CLI) | payer MEDICARE, OTHER ==
[2018-04-03 10:08] LABS: BASOPHILS % 0.5 (0.0-1.5); MEAN CORPUSCULAR HEMOGLOBIN 31.4 pg (28.0-34.0); MONOCYTES % 4.2 % (0.0-11.0); NEUTROPHILS # 6.8 # k/uL (1.4-7.7)
== END 2018-04-03 09:26 | disposition home or self-care (01) ==
LOC: LAB 09:21
PROVIDERS: ATTEND Psychiatry & Neurology Psychiatry
DX: Z79.899 Other long term (current) drug therapy (principal)
CPT/HCPCS: 36415; 80159; 85025

== ENCOUNTER 2018-05-05 10:26 | Outpatient (CLI) | payer MEDICARE, OTHER ==
[2018-05-05 11:22] LABS: BASOPHILS % 0.4 (0.0-1.5); EOSINOPHILS % 1.3 % (0.0-6.8); MEAN CORPUSCULAR HEMOGLOBIN 30.6 pg (28.0-34.0); MONOCYTES % 3.8 % (0.0-11.0)
[2018-05-05 11:23] LABS: NEUTROPHILS # 9.6 # k/uL (1.4-7.7)
== END 2018-05-05 10:32 | disposition home or self-care (01) ==
LOC: LAB 10:26
PROVIDERS: ATTEND Psychiatry & Neurology Psychiatry
DX: Z79.899 Other long term (current) drug therapy (principal); Z51.81 Encounter for therapeutic drug level monitoring
CPT/HCPCS: 36415; 80159; 85025

== ENCOUNTER 2018-05-24 08:53 | Emergency (ER) | payer MEDICARE, OTHER ==
[2018-05-24] MEDS ORDERED: LORazepam 2 MG/ML VIAL IVP STA ×2 (09:05→12:27)
[2018-05-24] MEDS ORDERED: 0.9 % SODIUM CHLORIDE 1,000 ML IV ONE (09:13)
[2018-05-24] MEDS ORDERED: 0.9 % SODIUM CHLORIDE 1,000 ML IV STA ×2 (09:14→09:21)
[2018-05-24] MEDS ORDERED: NS IV ONE (09:58)
[2018-05-24] MEDS ORDERED: POTASSIUM CHLORIDE IV ONE (09:58)
--- NOTE | 2018-05-24 10:02 | ED Physician Documentation ---
General Adult - HISTORIAN Historian: patient, paramedics - [facility] Chief Complaint: Altered Mental Status Additional Information: Pt presents to the ED via EMS c/o possible seizure. snf staff present. EMS reported stable vitals upon arrival. Pt Here subsequently became hypotensive 60s/40s. - ROS CONST: no problems EYES/ENT: denies: sore throat, nasal drainage, nasal congestion CVS/RESP: denies: chest pain, shortness of breath, cough GI/: denies: abdominal pain, problems urinating, vomiting, nausea, diarrhea - PAST HX Past History: other (schizophrenia, depression, bipolar, anxiety. ) Surgeries/Procedures: other (unknown) Allergies/Adverse Reactions: Allergies Allergy/AdvReac Type Severity Reaction Status Date / Time No Known Allergies Allergy Verified 12/25/16 08:18 Home Medications: Ambulatory Orders Medication Instructions Recorded Acetaminophen [Tylenol] 650 mg PO Q6 PRN 09/27/16 Citalopram Hydrobromide [Celexa] 40 mg PO DAILY 09/27/16 Clozapine [Clozaril] 100 mg PO HS 09/27/16 Divalproex Sodium [Depakote Er] 500 mg PO DAILY u2 09/27/16 Fenofibrate [Tricor] 160 mg PO DAILY 09/27/16 Fluticasone Propionate [Flonase 9.9 ml NS DAILY 09/27/16 Allergy Relief] Furosemide [Lasix] 40 mg PO DAILY u2 09/27/16 Ibuprofen 600 mg PO DAILY u2 09/27/16 Levothyroxine Sodium [Synthroid] 100 mcg PO DAILY 09/27/16 Lorazepam [Ativan] 1 mg PO TID 09/27/16 Magnesium Hydroxide [Milk Of 400 mg PO DAILY PRN 09/27/16 Magnesia] Niacinamide [Niacin] 500 mg PO HS 09/27/16 Norgestimate-Ethinyl Estradiol 1 each PO DAILY 09/27/16 [Previfem Tablet] Olanzapine [Zyprexa] 5 mg PO Q4 PRN 09/27/16 [place]-3 Fatty Acids [Fish Oil] 1,000 mg PO TID 09/27/16 Ondansetron HCl Rapdis [Zofran Odt] 8 mg PO Q8 PRN 09/27/16 Ranitidine HCl [Zantac] 300 mg PO HS 09/27/16 Trazodone HCl 250 mg PO HS u2 09/27/16 Triamterene/Hydrochlorothiazid 2 each PO DAILY av 09/27/16 [Dyazide 37.5-25 Capsule] - SOCIAL HX Smoking History: non-smoker Alcohol Use: none Drug Use: none - FAMILY HX Family History: No - VITAL SIGNS Vital Signs: Vital Signs Temp Pulse Resp BP Pulse Ox 108/60 12/25/16 09:52 - REVIEWED ASSESSMENTS Nursing Assessment Reviewed: Yes Vitals Reviewed: Yes Progress - Progress Progress: WBC 4.1 HGB 18.7 HCT 56.3 PLT 246 NA 133 K 2.8 CL 97 CO2 24 GLU 112 BUN 25 CREA 2.1 CA 10.5 ALT 25 AST 42 ALK 50 TBIL 1.4 TROP neg less than 0.[address] Ponce accepted pt to admission to the ED via EMS. General Adult Physical Exam - PHYSICAL EXAM GENERAL APPEARANCE: moderate distress EENT: eye inspection normal, ENT inspection normal, pharynx normal, no signs of dehydration, VIOLETTE, no nystagmus, TM's nml NECK: normal inspection, thyroid normal. No: lymphadenopathy RESPIRATORY: no resp distress. No: wheezes, rales, rhonchi CVS: reg rate & rhythm, heart sounds normal, equal pulses, no murmur, no gallop, PMI nml, no JVD, no friction rub, tachycardia, other (BP ) ABDOMEN: soft, no organomegaly, normal bowel sounds SKIN: normal color, diaphoresis, other (warm ) EXTREMITIES: non-tender, normal range of motion, no evidence of injury, no edema, J, CHOKER HOOKER NEURO: motor nml, sensation nml Discharge Clincal Impression: Hypotension Qualifiers: Hypotension type: other hypotension type Qualified Code(s): I95.89 - Other hypotension Referrals: CLARIBEL ARREOLA DO [Primary Care Provider] - 2 Days Condition: Critical Disposition: 02 XFER [id number]-TRM HOSP Decision to Admit: NO Date of Decison to Admit: 05/24/18 Decision Time: 10:19
[2018-05-24] MEDS ORDERED: POTASSIUM CHLORIDE 20 MEQ TABLET.ER PO STA (10:20)
--- NOTE | 2018-05-24 10:30 | Diagnostic Imaging Report ---
JANENE HARRISON [facility] [address] [facility] [address] [address] Report Submission Date: May 24, 2018 10:16:16 AM SCREWDOWN OPERATOR Patient Study Name: ANA WEINER Date: May 24, 2018 9:53:21 AM SCREWDOWN OPERATOR Modality Type: DX Gender: F Description: CHEST : 61 Institution: [facility] Physician: JANENE HARRISON Chest, AP portable History: Syncope Findings: There is no infiltrate, effusion or pneumothorax. Heart size, mediastinum and pulmonary vascularity are normal. Impression: No active pulmonary disease. Electronically signed on May 24, 2018 10:16:16 AM SCREWDOWN OPERATOR by: Jama POWERS
[2018-05-24] MEDS ORDERED: KETAMINE HCL 200 MG/20 ML VIAL IVP STA (12:27)
[2018-05-24] MEDS ORDERED: NOREPINEPHRINE BITARTRATE IV STA (12:50)
[2018-05-24 16:15] VITALS: BP 74/47
[2018-05-25 06:51] LABS: EOSINOPHILS % 1.4 % (0.0-6.8); MONOCYTES % 17.1 % (0.0-11.0)
== END 2018-05-24 11:00 | disposition short-term general hospital (02) ==
LOC: ED 08:53
DX: I95.9 Hypotension, unspecified (principal); R55 Syncope and collapse; E87.6 Hypokalemia
CPT/HCPCS: 36415; 71045; 80053; 82550; 83605; 84484; 85025; 93005; 96374; 96375; 96376; 99291; 99292; A9270; J2060; J7030; S1016